=== PATIENT | female | born 1955 | race Caucasian/White ===

== ENCOUNTER 2025-08-20 15:08 | Emergency (ER) | payer MEDICARE, BC, SELFPAY ==
--- OUTSIDE RECORDS SUMMARY | 2025-07-29 07:45 | XMS_ITS | Encounter Summary ---
Author Organization [facility] Address [address] [place] [address] Care Team Providers Care Water Tanker Driver Name Role Phone Kenny Arana MD Primary Care Provider [phone] Reason for Visit * (Routine) - Closed Specialty Diagnoses / Procedures Referred By Contac t Referred To Contact Diagnoses Low back pain with sciatica, sciatica laterality unspecified, unspecified back pain laterality, unspecified chronicity Procedures MRI SPINE LUMBAR W/O CON MRI SPINE LUMBAR W/O&W CON Namrata Sanders, DISTILLERY SUPERVISOR [address] [place] [address] Phone: tel: fax: Referral ID Status Reason Start Date Expiration Date Visits Re quested Visits Authorized [id number] Closed 1 1 Encounter Details Date Type Department Care Team (Latest Contact Info) Description 07/29/2025 7:45 AM CLEANER WALL Ancillary Procedure [facility] [address] [place] [address] Low back pain with sciatica, sciatica laterality unspecified, unspecified back pain laterality, unspecified chronicity Social History Tobacco Use Types Packs/Day Years Used Date Smoking Tobacco: Never Assessed Comments Unknown Sex and Gender Information Value Date Recorded Sex Assigned at Not on file Legal Sex Female 2:52 PM CLEANER WALL Gender Identity Not on file Sexual Orientation Not on file documented as of this encounter Plan of Treatment Not on file documented as of this encounter Procedures Procedure Name Priority Date/Time Associated Diagnosis Comments MRI SPINE LUMBAR W/O CON Routine 07/29/2025 8:04 AM CLEANER WALL Low back pain with sciatica, sciatica laterality unspecified, unspecified back pain laterality, unspecified chronicity documented in this encounter Results * MRI SPINE LUMBAR W/O CON (07/29/2025 8:04 AM CLEANER WALL) Anatomical Region Laterality Modality Spine Magnetic Resonan ce 07/29/2025 10:5 9 AM CLEANER WALL Impressions 07/29/2025 11:06 AM CLEANER WALL Degenerative changes discussed above. Worsened facet arthropathy with increased anterolisthesis is progressive disc degeneration with loss of disc height at L4-L5 and L5-S1. At L4-L5, worsened moderate to severe spinal canal narrowing as well as severe right and mild to moderate left foraminal narrowing. At L5-S1, worsened mild to moderate spinal canal narrowing and mild to moderate bilateral foraminal narrowing. SIGNED BY: Gonzalo Byrnes M.D. Narrative 07/29/2025 11:06 AM CLEANER WALL EXAM: MRI LUMBAR SPINE 07/29/2025 7:47 AM. CLINICAL INFORMATION: Low back pain with sciatica TECHNIQUE: Routine-Sagittal T1, sagittal T2, sagittal STIR, axial T1, axial T2. COMPARISON: Previous outside MRI dated January 30, 2016 CONTRAST: None. FINDINGS: LUMBAR VERTEBRAE: Normal in height and signal intensity. LUMBAR ALIGNMENT: 7 mm anterolisthesis L4-L5 and 6 mm anterolisthesis L5-S1 are both increased.. CONUS MEDULLARIS AND CAUDA EQUINA: Normal in appearance. Conus ends at L1-L2 EXTRASPINAL ABNORMALITIES: No abnormalities demonstrated. SPECIFIC INTERSPACES ARE EVALUATED FOLLOWS: L1-2:: The disc is unremarkable. Central spinal canal and neural foramen are widely patent. L2-3: The disc is unremarkable. Central spinal canal and neural foramen are widely patent. L3-4: Mild disc bulge. No spinal canal or foraminal narrowing. No change. Central spinal canal and neural foramen are widely patent. L4-5: Moderate bilateral facet and ligamentous hypertrophy increased with increased anterolisthesis disc uncovering. Superimposed disc bulging. Moderate to severe spinal canal narrowing is worsened. Severe right foraminal narrowing is worsened. Mild to moderate left foraminal narrowing worsened.. L5-S1: Moderate bilateral facet arthropathy worsened. Increased anterolisthesis with disc uncovering superimposed disc bulging. Mild to moderate spinal canal narrowing worsened. Mild to moderate bilateral foraminal narrowing worsened.. Procedure Note Gonzalo Byrnes MD - 07/29/2025 EXAM: MRI LUMBAR SPINE 07/29/2025 7:47 AM. CLINICAL INFORMATION: Low back pain with sciatica TECHNIQUE: Routine-Sagittal T1, sagittal T2, sagittal STIR, axial T1,axial T2. COMPARISON: Previous outside MRI dated January 30, 2016 CONTRAST: None. FINDINGS: LUMBAR VERTEBRAE: Normal in height and signal intensity. LUMBAR ALIGNMENT: 7 mm anterolisthesis L4-L5 and 6 mm anterolisthesisL5-S1 are both increased.. CONUS MEDULLARIS AND CAUDA EQUINA: Normal in appearance. Conus ends atL1-L2 EXTRASPINAL ABNORMALITIES: No abnormalities demonstrated. SPECIFIC INTERSPACES ARE EVALUATED FOLLOWS: L1-2:: The disc is unremarkable. Central spinal canal and neural foramenare widely patent. L2-3: The disc is unremarkable. Central spinal canal and neural foramenare widely patent. L3-4: Mild disc bulge. No spinal canal or foraminal narrowing. No change.Central spinal canal and neural foramen are widely patent. L4-5: Moderate bilateral facet and ligamentous hypertrophy increased withincreased anterolisthesis disc uncovering. Superimposed disc bulging.Moderate to severe spinal canal narrowing is worsened. Severe rightforaminal narrowing is worsened. Mild to moderate left foraminal narrowingworsened.. L5-S1: Moderate bilateral facet arthropathy worsened. Increasedanterolisthesis with disc uncovering superimposed disc bulging. Mild tomoderate spinal canal narrowing worsened. Mild to moderate bilateralforaminal narrowing worsened.. IMPRESSION Degenerative changes discussed above. Worsened facet arthropathy with increased anterolisthesis is progressivedisc degeneration with loss of disc height at L4-L5 and L5-S1. At L4-L5, worsened moderate to severe spinal canal narrowing as well assevere right and mild to moderate left foraminal narrowing. At L5-S1, worsened mild to moderate spinal canal narrowing and mild tomoderate bilateral foraminal narrowing. SIGNED BY: Gonzalo Byrnes M.D. us No Doctor MRI ORDERABLE Final Result documented in this encounter Visit Diagnoses Diagnosis Low back pain with sciatica, sciatica laterality unspecified, unspecified back pain laterality, unspecified chronicity documented in this encounter Care Teams Water Tanker Driver Relationship Specialty Start Date End Date Kenny Arana MD [address] [place] [phone] PCP - General Internal Medicine 08/02/24 documented as of this encounter
[2025-08-20] VITALS (16 sets, daily range): BP systolic 148–175; BP diastolic 100–124; PULSE 94–113; RESP 18; TEMP 36.9; O2SAT 91–96; BMI 16.8
--- OUTSIDE RECORDS SUMMARY | 2025-08-20 15:09 | XMS_ITS | Clinical Summary ---
Author Organization [facility] Address [address] [place] [address] Care Team Providers Care Track And Field Coach Name Role Phone Kenny Arana MD Primary Care Provider [phone] Namrata Sanders BARREL RAISER HELPER Unavailable [phone] Allergies Active Allergy Reactions Criticality Noted Date Comments Polyethylene Glycol 3350 Vomiting 11/28/2018 Penicillins Rash Low 07/24/2007 Sulfa (Sulfonamide Antibiotics) Rash Low 04/25 Medications EXCEDRIN MIGRAINE 250 MG-250 MG-65 MG TAB 2 tabs twice daily 0 05/09/20 06 Active multivitamin (MVI) tablet Take 1 tablet by mouth once daily. 0 03/08/20 19 Active amLODIPine-estrella azepril, 5-10 mg, (LOTREL) 5-10 mg capsuleIndicat ions:HTN (hypertension) Take 1 Capsule by mouth once daily. 90 Capsule 3 12/04/19 25 Active fluticasone (50 mcg per actuation) nasal solution (FLONASE)Indic ations:Acute allergic rhinitis Inhale 2 Sprays in both nostrils once daily. 16 g 07/23/20 25 Active traMADoL (ULTRAM) 50 mg tabletIndicati ons:Fibromyalg ia TAKE 2 TABLETS BY MOUTH FOUR TIMES DAILY NEEDED 240 Tablet 08/01/20 25 Active fluticasone (50 mcg per actuation) nasal solution (FLONASE)Indic ations:Bacteri al sinusitis Inhale 2 Sprays in both nostrils once daily. 16 g 5 11:19 AM CDT 03/14/20 25 025 Discontinued(Re order (E-cancel not sent)) traMADoL (ULTRAM) 50 mg tabletIndicati ons:Fibromyalg ia TAKE 2 TABLETS BY MOUTH FOUR TIMES DAILY NEEDED 240 Tablet 07/03/20 25 025 Discontinued Active Problems Problem Noted Date Diagnosed Date HTN (hypertension) 12/03/2024 Depression, recurrent 03/29/2023 Dermatitis 12/16/2021 Generalized anxiety disorder 03/27/2021 Grief reaction her d ied of pancreatic cancer February 09, 2020 02/11/2020 Screening for colon cancer:: 2018 ifob + february 2019 colonoscopy hyperplastic polyp only. repeat 10 years. 08/29/2018 Fibromyalgia on tramadol se en at multiple pain clinics including [facility] (started tramadol there), failed MS contin, gabapentin, many antidepressants. PT is critical for her.ON tramadol and excedrin 07/19/2017 Overview (02/03/2021): 02/03/2021 10:12 AM I called and reviewed the issue of the tramadol prescription with her. She has a large retriever named Latesha weighs about 60 pounds who takes tramadol 50 mg 4 times a day also.on an rx from her vet, this shows up on the HOSPITAL TECHNICIAN under her name. There is no conflict between her having this for her dog and having a separate prescription for herself. I refilled her prescription. Signed electronically Kenny Arana MD [facility] Encounter for long-term (cur rent) use of other medications toxassure 02/201902/06/2015 Resolved Problems Problem Noted Date Diagnosed Date Resolved Date Systemic lupus erythematosus , unspecified SLE type, unspecified organ involvement status 04/06/2022 09/01/2022 Weight loss, unintentional 04/06/2022 0 01/15/2024 Overview (04/06/2022): Wt Readings from Last 10 Encounters: 04/06/22 42.4 kg (93 lb 6 oz) 12/16/21 44.5 kg (98 lb 3.2 oz) 03/25/21 44.2 kg (97 lb 8 oz) 03/22/21 44.5 kg (98 lb) 12/10/20 45 kg (99 lb 4.8 oz) 11/13/19 47.4 kg (104 lb 8 oz) 08/28/19 46.1 kg (101 lb 11.2 oz) 05/23/19 46.9 kg (103 lb 6.4 oz) 03/08/19 48.3 kg (106 lb 8 oz) 11/28/18 49.6 kg (109 lb 6.4 oz) Bilateral foot pain 07/06/2021 01/15/20 24 Prediabetes 03/29/2021 07/06/2021 Hypertriglyceridemia 03/29/2021 021 Attention deficit hyperactiv ity disorder (ADHD), combined type 03/27/2021 07/06/2021 PTSD (post-traumatic stress disorder) 03/27/2021 07/06/2021 Adjustment reaction with anx iety and depression 03/27/2021 08/03/2023 Screening for breast cancer 08/29/2018 07/06/2021 Pap smear for cervical cancer screening 08/29/2018 07/06/2021 Back pain without radiation 08/29/2018 07/06/2021 Lumbar disc disease 02/23/2016 08/29/20 18 Abdominal bloating 02/06/2015 8 Abdominal pain 08/28/2014 08/29/2018 Epistaxis 08/28/2014 08/29/2018 Insomnia 05/07/2013 08/29/2018 Osteoarthritis of hands 12/17/201201/2018 Dyshidrotic eczema of hands 12/17/2012 08/29/2018 Raynaud phenomenon 12/17/2012 8 ADD (attention deficit disorder) 12/17/2012 08/29/2018 Anxiety 12/17/2012 08/29/2018 Arthritis 12/17/2012 08/29/2018 FIBROMYALGIA 05/09/2006 07/19/2017 Encounters Date Type Department Care Team Description 08/08/2025 Telephone [facility] [address] [place] [phone] Namrata Sanders, LUIS Questions 08/01/2025 Refill [facility] [address] [place] [address] Namrata Sanders, LUIS Refill Request (Tramadol) 07/31/[address] [address] Namrata Sanders, LUIS Results (MR SPINE LUMBAR WWO) 07/23/2025 12:30 PM CDT Phone Office Visit [address] [address] Namrata Sanders, LUIS 07/23/[address] [address] Namrata Sanders, LUIS Imaging 07/23/[address] [address] Namrata Sanders, LUIS Refill Request (Fluticasone (50 Mcg Per Actuation) Nasal) 07/21/[address] [address] Namrata Sanders NP Appointment (med check ) 07/17/[address] [address] Kenny Arana MD Appointment Request 07/03/[address] [address] Kenny Arana MD Refill Request (Tramadol) 06/09/[address] [address] Kenny Arana MD Refill Request (Tramadol) 05/28/2025 Nurse Triage [address] [address] Kenny Arana MD Mouth Problem 05/23/2025 Telephone [facility] [address] [facility] [place] [address] Tech, Mammo Results (screening mammogram.) 05/22/2025 2:30 PM CDT Ancillary Procedure [facility] [address] [phone] 05/22/2025 Travel from Last 3 Months Family History Medical History Relation Name Comments Other Brother 1 killed by drunk newspaper delivery driver Skin cancer Brother 6 Mental illness Brother 9 Other Brother 9 suicde Cancer Father stomach Other Father abdominal aneur ysm Cancer Maternal Grandmother uterine Arthritis Mother Cancer Mother ovarian or panc reas at 43. pt stated doctors did not know where cancer started as it was spread all over. Arthritis Sister Relation Name Status Comments Brother 1 Brother 2 Alive Brother 3 Alive Brother 4 Alive Brother 5 Alive Brother 6 Alive Brother 7 Alive Brother 8 Alive Brother 9 Father Maternal Grandmother Mother Sister Alive Social History Tobacco Use Types Packs/Day Years Used Date Smoking Tobacco: Former Cigarettes 0.3 10 1 09/25/1994 - 07/26/2005 Smokeless Tobacco: Never Tobacco Cessation:Counseling Given: Not Answered Alcohol Use Standard Drinks/Week Comments No 0 (1 standard drink = 0.6 oz pur e alcohol) PHQ-2 Answer Date Recorded PHQ-2 TOTAL SCORE 2 01/15/2024 Social Connections Answer Date Recorded Do you often feel lonely or isolated from those around you? 0 12/03/2024 Financial Resource Strain Answer Date R ecorded Difficulty of Paying Living Expenses 3 12/03/2024 Difficulty of Paying Living Expenses Not on file 12/03/2024 Food Insecurity Answer Date Recorded Do you worry your food will run out before you are able to buy more? 1 12/03/2024 Transportation Needs Answer Date Record ed Does lack of transportation keep you from medica l appointments? 1 12/03/2024 Does lack of transportation keep you from work, meetings or getting things that you need? 1 12/03/2024 Housing Stability Answer Date Recorded What is your housing situation today? 1 12/03/2024 Utilities Answer Date Recorded Do you have trouble paying f or utilities (for example, heat, electricity, water, phone)? 1 12/03/2024 Comments No Sex and Gender Information Value Date Recorded Sex Assigned at Not on file Legal Sex Female 6:41 AM MOBILE HOMES REPAIRER Gender Identity Not on file Sexual Orientation Not on file Obstetrics History Para Term AB IAB SAB Ectopic Multiple Livin g Live Births 6 1 1 0 5 0 4 1 0 1 1 Date Outcome GA Total Labor Labor/2nd/3rd Weight Sex Type Anes PTL Bree A1 A5 Name Clin Ectopic SAB SAB SAB SAB 1979 Term M C-Sec tion Living Last Filed Vital Signs Vital Sign Reading Time Taken Comments Blood Pressure 166/100 03/14/2025 10:27 AM CDT Pulse 100 03/14/2025 10:27 AM CDT Temperature 36.5 C (97.7 F) 03/14/2025 10:27 AM CDT Respiratory Rate 14 03/14/2025 10:27 AM CDT Oxygen Saturation 96% 03/14/2025 10:27 AM CDT Inhaled Oxygen Concentration - - Weight 42.5 kg (93 lb 9.6 oz) 12/03/2024 10:39 A M CDT Height 160 cm (5' 3) 12/03/2024 10:39 AM CDT Body Mass Index 16.58 12/03/2024 10:39 AM CDT Plan of Treatment Health Maintenance Due Date Last Done Comments Pneumococcal series for age 50+ (1 of 1 - PCV) 12/08/2005 RSV vaccine for adults or (1 - Risk 50-74 years 1-dose series) 12/08/2005 Zoster (shingles) series for age 50+ (1 of 2) 12/08/2005 Tetanus booster 07/24/2019 07/24/2009 (Comp leted outside of [facility]) DEXA/DXA scan for age 65+ 12/08/2020 Depression screening for age 12+ 01/14/2025 01/15/2024, 08/26/2022, 08/24/2022, Additional history exists Medicare Wellness for age 65+ 01/15/2025 01/15/2024, 04/06/2022, 03/25/2021 Influenza Vaccine (#1) 2025 BMI (ht and wt on same day) for age 18+ 12/03/2025 12/03/2024, 01/15/2024, 08/22/2022, Additional history exists Mammogram for age 45-75 05/22/2026 05/22/20 25, 01/15/2024, 11/28/2018, Additional history exists Lipids for age 45-75 01/14/2029 01/15/2024, 03/29/2023, 04/06/2022, Additional history exists Colonoscopy through age 75 03/19/2029 03/19/2019 Hepatitis C screening for age 18-79 Completed 06/26/2013 Hepatitis B series for 19+ Aged Out N o longer eligible based on patient's age to complete this topic Procedures Procedure Name Priority Date/Time Associated Diagnosis Comments XR MAMMO JADA BILAT SCREEN Routine 05/22/2025 2:58 PM CDT Visit for screening mammogram LIPID PANEL W REFLEX MEASURED LDL Routine 01/15/2024 10:38 AM CDT High cholesterol SCAN-COLONOSCOPY 03/19/2019 8:00 AM CDT ANTI HCV Routine 06/26/2013 11:55 AM CDT Routine screening for STI (sexually transmitted infection) from Last 3 Months or Most Recently Relevant to Health Maintenance Results * XR MAMMO JADA BILAT SCREEN (05/22/2025 2:58 PM CDT) Anatomical Region Laterality Modality BREASTS, Breast Left, Breast Right Bilateral Mammography Impressions 05/23/2025 1:39 PM CDT There is no radiographic evidence for malignancy. Recommend annual mammograms. MAMMOGRAM ASSESSMENT: ACR 1 Negative PATIENTS: You will also receive a letter with your examination results in an easy to read format. If you have questions about your results, please contact your referring provider. Narrative 05/23/2025 1:39 PM CDT For Patients: As a result of the Century Cures Act, medical imaging exams and procedure reports are released immediately into your electronic medical record. You may view this report before your referring provider. If you have questions, please contact your health care provider. XR MAMMO JADA BILAT SCREEN [[id number]] CLINICAL HISTORY: This is an asymptomatic 69 y.o. patient. INDICATION FOR EXAM: Mammogram Screening. TECHNIQUE: CC and MLO views were obtained. This study was evaluated with the assistance of Computer-Aided Detection. Breast Tomosynthesis was used in interpretation. COMPARISON FILM: Yes 11/28/18 [facility] 10/19/05 [facility] FINDINGS: The breasts are heterogeneously dense, which may obscure small masses. There are no dominant masses, suspicious micro calcifications or areas of architectural distortion. us Kenny Arana MD MAMMO Final Result * (ABNORMAL) LIPID PANEL W REFLEX MEASURED LDL (01/15/2024 10:38 AM CDT) CHOLESTEROL,TOTAL 231(H) 100 - 199 mg/dL 01/15/2024 8:42 PM CDT [facility] Comment: Cholesterol, Total Reference Ranges Desirable <200 mg/dL Borderline 200-239 mg/dL High >=240 mg/dL TRIGLYCERIDES 99 <150 mg/dL 01/15/2024 8:42 PM CDT [facility] HDL CHOLESTEROL 87 >40 mg/dL 8:42 PM CDT [facility] NON-HDL CHOLESTEROL 144 <145 mg/dl 01/15/2024 8:42 PM CDT [facility] CHOL/HDL RATIO 2.66 <4.50 01/15/2024 8:42 PM CDT [facility] LDL CHOLESTEROL 124 <=130 mg/dL 01/15/2024 8:42 PM CDT [facility] VLDL CHOLESTEROL 20 <=30 mg/dL 01/15/2024 8:42 PM CDT [facility] PROVIDER ORDERED STATUS RANDOM 01/15/2024 8:42 PM CDT [facility] Blood BLOOD SPECIMEN / Unknown Venipuncture / Unknown 01/15/2024 10:38 AM CDT 01/15/2024 10:38 AM CDT us Kenny Arana MD CHEMISTRY Final Result [facility] [address] [place] [address], [place] * SCAN-COLONOSCOPY (03/19/2019 8:00 AM CDT) Narrative Procedure Note Nirmal Zacarias MD - 03/19/2019 7:12 AM CDT [facility] [address], [address], [place] [address] Patient Name: Ioana Barahona Gender: Female Exam Date: 03/19/2019 Visit Number: [id number] Age: 63 Years Date of : 1955 Attending MD: Nirmal Zacarias MD Medical Record#: [id number] Procedure: Colonoscopy Indications: Colorectal cancer screening Hemoccult positive stools Referring MD: Kenny Arana MD Primary MD: Kenny Arana MD Medications: Admitting Medications: 0.9% Normal Saline at TK Intra Procedure Medications: Patient received monitored anesthesia care. Complications: No immediate complications Procedure: An examination of the heart and lungs was performed and found to be withinacceptable limits. The patient was therefore deemed a reasonablecandidate for endoscopy and sedation. The risks and benefits of the procedure were explained to the patient.After obtaining informed consent, the patient received monitoredanesthesia care and I passed the scope without difficulty via the rectum to the cecum. The appendiceal orificeand ic valve were identified. The scope was retroflexed during theexamination The quality of the prep was good (Suprep). This was a complete examination throughout the entire colon. Findings: Polyp location: sigmoid. Quantity: 2. Size: 1 mm, 1 mm. Polyp shape:sessile. Maneuver: polypectomy was performed with a cold biopsy forceps. Removal: complete. Retrieval: complete. Bleeding: none. Polyp location: rectum. Quantity: 1. Size: 1 mm. Polyp shape: sessile. Maneuver: polypectomy was performed with a cold biopsy forceps . Removal: complete. Retrieval: complete. Bleeding: none. Diverticulosis. Location: - sigmoid. Size: small. Quantity:few. No inflammation present. Hemorrhoids. Internal hemorrhoids (small) without bleeding. Tortuous colon. As a result, extra time was needed to complete theprocedure. Remainder of the exam is normal. Impression: Colorectal polyps Diverticulosis of colon without diverticulitis Internal hemorrhoids impression comments: Three polyps were removed. Preliminary Plan: Repeat colonoscopy 3, 5, or 10 years depending on the pathology resul. Pathology Results: A: COLON, SIGMOID, POLYPS: 1. Hyperplastic polyps (2) B: RECTUM, POLYP: 1. Hyperplastic polyp MICROSCOPIC A: Performed B: Performed Electronically signed by: Felix Prabhakar MD Orders Instruction(s)/Education: Instruction/Education Timeframe Assessment Colon Polyps K63.5 Diverticulosis/Diverticulitis K63.5 Hemorrhoids K63.5 Final Plan: Repeat colonoscopy in 10 years for screening. If you have signs orsymptoms of lower GI illness or a new diagnosis of colon cancer in animmediate family member, you should contact [facility] or your primary providerto discuss whether your next exam should be repeated sooner. We will attempt to contact you at appropriate intervals via U.S. mail. Wemay not be able to find you or contact you at that time, therefore youshould know that the responsibility for following our recommendation restswith you. If you don't hear from us at the time your procedure is due,please contact our office to schedule an appointment. If your contactinformation should change, please contact our office so that we can updateyour record. _Electronically signed by: Nirmal Zacarias MD 03/19/2019 cc: Kenny Arana MD cc: Kenny Arana MD us Nirmal Zacarias MD OTHER Final Resu lt * ANTI HCV (06/26/2013 11:55 AM CDT) ANTI HCV Non-reacti ve [facility] Blood specimen (specimen) BLOOD SPECIMEN / Unknown 06/26/2013 11:55 AM CDT 06/26/2013 11:51 AM CDT us Bhavya Archibald NP SEND OUTS Final Re sult [facility] [place]NAL ZIP [id number] [place] [address] from Last 3 Months or Most Recently Relevant to Health Maintenance Insurance MEDICARE PART B HB ONLY [facility] MEDICARE PB ONLY Care Teams Track And Field Coach Relationship Specialty Start Date End Date Kenny Arana MD [address] [place] [id number] PCP - General Internal Medicine 02/23/18 Namrata Sanders NP [address] [address] Nurse Practitioner Nurse Practitioner 12/17/24
--- OUTSIDE RECORDS SUMMARY | 2025-08-20 15:09 | XMS_ITS | Clinical Summary ---
Author Organization [facility] Address [address] [place] [id number] Care Team Providers Care Temp Recruiter Name Role Phone Kenny Arana MD Primary Care Provider [phone] Allergies No known active allergies Encounters Date Type Department Care Team Description 07/29/2025 7:45 AM LODE MINER Ancillary Procedure [facility] [address] [place] [address] Low back pain with sciatica, sciatica laterality unspecified, unspecified back pain laterality, unspecified chronicity from Last 3 Months Social History Tobacco Use Types Packs/Day Years Used Date Smoking Tobacco: Never Assessed Comments Unknown Sex and Gender Information Value Date Recorded Sex Assigned at Not on file Legal Sex Female 2:52 PM LODE MINER Gender Identity Not on file Sexual Orientation Not on file Plan of Treatment Health Maintenance Due Date Last Done Comments Colonoscopy 1955 Lipid Screening 1955 Osteoporosis Screening 1955 Depression Assessment (PHQ-2) 12/08/1956 Adult Tetanus Booster 12/08/1974 Pneumococcal 50+ Years (1 of 1 - PCV) 12/08/2005 Yearly Review of HCD 12/08/2005 Zoster Vaccine (1 of 2) 12/08/2005 Medicare Wellness Visit 01/14/2025 01/15/20 24, 04/06/2022, 03/25/2021 COVID-19 Vaccine (1 - 2024-2 6 season) 2025 Influenza Vaccine (#1) 2025 Mammogram Screening 05/22/2027 05/22/2025, 05/22/2025, 11/28/2018 RSV Vaccines (1 - 1-dose 75+ series) 12/08/2030 Hepatitis C Screening Completed 06/26/2013 Meningococcal B Vaccine Aged Out No l onger eligible based on patient's age to complete this topic Procedures Procedure Name Priority Date/Time Associated Diagnosis Comments MRI SPINE LUMBAR W/O CON Routine 07/29/2025 8:04 AM LODE MINER Low back pain with sciatica, sciatica laterality unspecified, unspecified back pain laterality, unspecified chronicity from Last 3 Months Results * MRI SPINE LUMBAR W/O CON (07/29/2025 8:04 AM LODE MINER) Anatomical Region Laterality Modality Spine Magnetic Resonan ce 07/29/2025 10:5 9 AM LODE MINER Impressions 07/29/2025 11:06 AM LODE MINER Degenerative changes discussed above. Worsened facet arthropathy [...] Gonzalo Byrnes M.D. Narrative 07/29/2025 11:06 AM LODE MINER EXAM: MRI LUMBAR SPINE 07/29/2025 7:47 AM. [...] us No Doctor MRI ORDERABLE Final Result from Last 3 Months Insurance [facility] MEDICARE SUPPLEMENT MEDICARE PART A & B Care Teams Temp Recruiter Relationship Specialty Start Date End Date Kenny Arana MD [address] [address] PCP - General Internal Medicine 08/02/24
--- NOTE | 2025-08-20 15:39 | ED.GENADULT ---
HPI - General Adult General Time Seen by Provider: 15:54 Date Seen: 08/20/25 Chief complaint: Hypertension Stated complaint: anxiety Time Seen by Provider: 08/20/25 15:12 Source: patient, EMS and RN notes reviewed Mode of arrival: EMS Limitations: no limitations History of Present Illness HPI narrative: This 69-year-old female is brought in by EMS from home with concerns of her breathing. She notes she will start to feel anxious in her breathing will become rapid, feel like she can not catch her breath. She does note she has anxiety. She also does tell me there are times where she is walking her dog and feel pull her real hard, she will have difficulty getting caught up on her breathing. She has noticed no chest pain. She admits there was a lot of anxiety right now, she states she absolutely does not like change. She lots of times will eat the same foods over because she does not like change so much. She needs to move into a [facility] place, she worries how her dog and her are going to manage that change. Worries about that level of change. She admits that she went off the amlodipine that she was on, made her feel dizzy. She has not taken her tramadol for last couple days, was wondering if that was increasing her symptoms. She states she has tried a multitude of antidepressants in the past. She states none of them worked for her. She feels the tramadol besides helping her pain has actually helped some of her depression and anxiety symptoms in the past. She is having a lot of low back pain, had an MRI in does have lumbar stenosis. She has an appointment on August 28 for follow-up for this. She does admit that she is probably feeling some depression 2. She notes that she does not want to go out of the house, does not want to be around people or be in crowds, she certainly sounds to have some social anxiety on talking to her. Her brother is in the room now but she did tell nursing staff during triage that her brother has cancer and this is very upsetting to her as well. Her . She is not on anything for her lupus. She denies any chest pain, has not been sick with anything recently. She has a remote smoking history. Does not drink any alcohol. Past medical history from [facility] shows hypertension, dermatitis, grief reaction with of her from pancreatic cancer in January of 2020, generalized anxiety disorder, depression, fibromyalgia. Related Data Home Medications ?Medication ?Instructions ?Recorded ?Confirmed acetaminophen-caffeine 500 mg-65 1 tab PO Q6H 08/20/25 08/20/25 mg tablet (Excedrin Tension Headache) tramadol 50 mg tablet 100 mg PO QID PRN 08/20/25 08/20/25 Previous Rx's ?Medication ?Instructions ?Recorded hydroxyzine pamoate 25 mg capsule 25 mg PO TID PRN #30 caps 08/20/25 Allergies Allergy/AdvReac Type Severity Reaction Status Date / Time No Known Drug Allergies Allergy Verified 08/20/25 15:52 Review of Systems Status of ROS: Reports: 6 or more systems reviewed and unremarkable except as noted in History and below Exam Const: Vital Signs, click to edit/add: Vital Signs - 24 hr 08/20/25 15:26 08/20/25 15:30 08/20/25 15:32 Temperature Pulse Rate 105 H 104 H 101 H Pulse Rate [Pulse Oximeter] Respiratory Rate 18 Blood Pressure 168/113 H Blood Pressure [Ri ght Upper Arm] Pulse Oximetry 95 95 96 Oxygen Delivery Me thod 08/20/25 15:33 08/20/25 16:02 08/20/25 17:08 Temperature 98.4 F Pulse Rate 111 H Pulse Rate [Pulse Oximeter] 101 H Respiratory Rate 18 Blood Pressure 175/123 H Blood Pressure [Ri ght Upper Arm] 171/124 H Pulse Oximetry 96 94 Oxygen Delivery Me thod Room Air 08/20/25 17:09 08/20/25 17:10 08/20/25 17:11 Temperature Pulse Rate 108 H 110 H 108 H Pulse Rate [Pulse Oximeter] Respiratory Rate Blood Pressure 174/107 H Blood Pressure [Ri ght Upper Arm] Pulse Oximetry 95 96 96 Oxygen Delivery Me thod 08/20/25 17:15 08/20/25 17:30 08/20/25 17:32 Temperature Pulse Rate 105 H 113 H 106 H Pulse Rate [Pulse Oximeter] Respiratory Rate Blood Pressure 148/104 H Blood Pressure [Ri ght Upper Arm] Pulse Oximetry 96 91 96 Oxygen Delivery Me thod 08/20/25 17:45 08/20/25 18:00 08/20/25 18:02 Temperature Pulse Rate 99 99 102 H Pulse Rate [Pulse Oximeter] Respiratory Rate Blood Pressure 156/100 H Blood Pressure [Ri [facility] Upper Arm] Pulse Oximetry 95 95 95 Oxygen Delivery Me thod 08/20/25 18:16 Temperature Pulse Rate 94 Pulse Rate [Pulse Oximeter] Respiratory Rate Blood Pressure Blood Pressure [Ri t Upper Arm] Pulse Oximetry 96 Oxygen Delivery Me thod Nasim is a 69-year-old female lying in bed in exam room 6, she is frail looking, slender status, alert, interactive, no apparent distress. Speech is normal, not pressured. She has normal thought content. Denies suicidality or homicidality, denies hallucinations. Sclera clear, conjugate gaze, symmetrical facial function. Next slender, no jugular venous distension, no masses. Lungs are clear come good air entry, no wheezing crackles, no tachypnea, no accessory muscle use. CV regular rate and rhythm, no murmur, normal S1-S2, S3-S4. Abdomen is soft, not distended, slender, no masses, no organomegaly. She has no lower extremity edema. She moves all extremities, no focal neurologic deficit noted. Documenting provider has reviewed patient's vital signs: yes Course Course ED Course: Her blood pressure in November was 134/58 while she was on medicines presumably. In her chart it was 166/100 in February of this year. She is hypertensive here but is off medicines. She is denying any end organ damage at this time outside of this shortness of breath. Will look at D-dimer, have her on pulse oximetry making sure we do not have hypoxia. Will look at cardiac labs, EKG, do appropriate labs. We are going to give her 100 mg of tramadol, reviewed with her that increase in pain certainly does not help blood pressure and she has been on chronic tramadol. There could be some withdrawal with this as well. She does agree to take this. She believes she has maybe use Vistaril in the past but has been years. We are going to give her a dose of Vistaril 25 mg here, this may help with muscle relaxant properties, augment pain as well as decrease anxiety. This is a non addictive medicine. I do not feel confident initiating anything out of the ER for depression and anxiety out of routine medicines as it sounds that she has tried many before, this will likely need to be managed by her primary care provider. Reevaluation(s) Time of Reevaluation #1: 16:45 Reevaluation #1: Patient is requesting to eat, did agree to allow patient to eat, see no reason to have her NPO. Time of Reevaluation #2: 18:43 Reevaluation #2: Patient states she is feeling much calmer. She is requesting some Vistaril, doubt that she will be able to get the prescription tonight and [facility] will be closed tomorrow. Will send her with two 25 mg pills that she could take tomorrow if needed. Consultations Consultation #1: Did speak with Dr. Bertrand from [facility]. We did review the troponins. He wonders if the initial blood pressure being elevated may have escalated this some, we did review her blood pressure maintained elevated however here. Patient is not having any chest pain. He thinks patient is safe to discharge with return precautions. I called more to discuss using the highly sensitive troponin and to see if you can see drastic changes. He states the initial value was not that elevated anyways. He does not think we need to repeat another 1. Time: 18:27 Vital Signs Vital signs: Initial Vital Signs Pulse Rate 105 H 08/20/25 15:26 Pulse Oximetry 95 08/20/25 15:26 Vital Signs Pulse Rate 105 H 08/20/25 15:26 Pulse Oximetry 95 08/20/25 15:26 Temperature 98.4 F 08/20/25 15:33 Pulse Rate 94 08/20/25 18:16 Respiratory Rate 18 08/20/25 15:33 Blood Pressure 156/100 H 08/20/25 18:02 Pulse Oximetry 96 08/20/25 18:16 Oxygen Delivery Method Room Air 08/20/25 15:33 Medications Administered Medications: Discontinued Medications Generic Name Dose Route Start Last Admin Trade Name Freq PRN Reason Stop Dose Admin Hydroxyzine Pamoate 25 mg 08/20/25 16:10 08/20/25 16:35 Hydroxyzine Pamoate 25 Mg Capsule PO 08/20/25 16:11 25 mg ONCE ONE Administration Hydroxyzine Pamoate 50 mg 08/20/25 18:42 08/20/25 18:55 Hydroxyzine Pamoate 25 Mg Capsule PO 08/20/25 18:43 Not Given ONCE ONE Tramadol HCl 100 mg 08/20/25 16:10 08/20/25 16:34 Tramadol Hcl 50 Mg Tablet PO 08/20/25 16:11 100 mg ONCE ONE Administration Medical Decision Making Lab Data Labs: Lab Results 08/20/25 08/20/25 Range/Units 16:30 17:20 WBC 8.04 (4.50-11.00) K/uL RBC 5.11 (4.00-5.20) m/uL Hgb 15.7 (12.0-16.0) gm/dL Hct 46.3 (33.0-51.0) % MCV 91 (80-100) fL MCH 31 (26-34) pg MCHC 34 (32-36) gm/dL RDW Coeff of Sweetie 13.0 (11.5-15.5) % Plt Count 250 (140-440) K/uL Neut % (Auto) 81.1 H (42.0-72.0) % Lymph % (Auto) 11.7 L (20-44) % Towns % (Auto) 6.8 (0.0-11.0) % Eos % (Auto) 0.1 (0.0-7.0) % Baso % (Auto) 0.2 (0.0-3.0) % Neut # (Auto) 6.50 (1.7-7.0) K/uL Lymph # (Auto) 0.90 (0.90-2.90) K/uL Towns # (Auto) 0.50 (0.00-0.90) K/UL Eos # (Auto) 0.01 (0.00-0.50) K/uL Baso # (Auto) 0.02 (0.00-0.30) K/uL Abs Immat Gran (auto) 0.01 (0.00-0.30) K/uL Imm/Tot Granulo (auto) 0.1 % D-Dimer Quant (PE/DVT) 0.27 (0.00-0.50) ug/ml VBG pH 7.432 H (7.32-7.43) VBG pCO2 47 (40-50) mmHG VBG pO2 34.2 (25-47) mmHG VBG HCO3 31 H (21-28) mmol/L Sodium 134 L (135-149) mmol/L Potassium 3.4 L (3.6-5.1) mmol/L Chloride 93 L (96-114) mmol/L Carbon Dioxide 29 (20-32) mmol/L Anion Gap 12 (7-15) mEq/L BUN 18 (7-30) mg/dL Creatinine 0.7 (0.5-1.5) mg/dL Estimated Creat Clear 34.98 Estimated GFR 94 ml/min Glucose 104 (60-115) mg/dL Calcium 10.2 (8.4-10.6) mg/dL Magnesium 1.9 (1.5-2.6) mg/dL Total Bilirubin 0.7 (0.1-1.5) mg/dL AST 28 (12-35) U/L ALT 21 (4-35) U/L Alkaline Phosphatase 76 (40-150) U/L POC Troponin I High Sensi 17.7 H* 2.9 (2.9-13.0) pg/mL NT-Pro-B Natriuret Pep 196 (See Note) pg/mL Total Protein 7.3 (6.0-8.3) g/dL Albumin 4.7 (3.3-5.0) g/dL Imaging Data Chest x-ray: Attestation: I have reviewed the pertinent imaging results. My impression: Did visualize her portable chest x-ray and see hyperinflation without infiltrate, no pneumothorax. Radiologist's impression: Patient: NASIM BERTRAND Facility:?[facility] Patient ID:?[id number] Site Patient ID:?[id number]. Site :?[id number] Study:?XRay-Chest PORTABLE-08/20/2025 4:27:56 PM Ordering Physician:Brady Lyle Final Report: Indication: Shortness of breath Comparison: None available. Technique: Single AP view chest Findings: There is hyperinflation and chronic interstitial change. There is no focal consolidation, effusion, or pneumothorax. The cardiac silhouette is mildly prominent. The bony thorax is grossly intact. Impression: Marked hyperinflation and chronic interstitial changes without evidence of dense consolidation. Dictated by Óscar Cutler MD @ 08/20/2025 5:01:09 PM (Electronic Signature) ECG Data Attestation: I personally reviewed and interpreted this ECG as follows: (Normal sinus rhythm, biatrial enlargement, no acute ischemic change, flipped T-waves V1 through V4 without ST segment change.) Prior ECG tracings: not available for review Interpretation: Normal sinus rhythm, 96 beats per minute. Flipped T-waves V1 through V4 without any ST segment change, EKG unchanged from prior. Discharge Plan Discharge Clinical Impression: Anxiety, Fibromyalgia, Hypertension Patient Disposition: Home, Self-Care Condition: Stable Instructions: Fibromyalgia (ED), Generalized Anxiety Disorder (ED), Chronic Hypertension (ED) Additional Instructions: I do think that you should stay on your tramadol as you have been. If you do decide that you want to go off of this or decreased dosing, need to work with your primary care provider about a reduction plan. You also should follow up in clinic to review your blood pressure, discuss further management of hypertension. It is important to try to treat this, I feel you are best served following up with your primary care provider whom knows her history and potential medicines that you have tried in the past. There are other blood pressure medicines that he may tolerate better, will let you work on this with your primary care provider. You should also talk about anxiety. I will write for some Vistaril, this can be used as needed for anxiety symptoms. This is not addicting but can be sedating, would not recommend driving or operating machinery while using. As far as your shortness of breath, I do wonder about the symptoms you had while walking your dog, this could signify some lung problems from history of smoking or potential underlying heart disease. Would recommend talking to your primary care provider about doing cardiac stress testing as well as pulmonary function testing if they felt this was appropriate. If you have further concerns, have increasing shortness of breath, difficulty breathing or chest pain, please return to the ER for further evaluation. Activity Level: Activity as Tolerated Prescriptions: New hydroxyzine pamoate 25 mg capsule 25 mg PO TID PRNQty: 30 0RF No Action tramadol 50 mg tablet 100 mg PO QID PRN Excedrin Tension Headache 500-65 mg tablet 1 tab PO Q6H Follow Up/Referrals: Provider,Not a Local [Primary Care Provider, Family Practice] Stand Alone Forms: [facility] Info Instructions Procedures ABG Interpretation ABG Results: 08/20/25 16:30 VBG pH 7.432 H VBG pCO2 47 VBG pO2 34.2 VBG HCO3 31 H
--- NOTE | 2025-08-20 16:09 | CRLHL7_ITS ---
For Patients: As a result of the Century Cures Act, medical imaging exams and procedure reports are released immediately into your electronic medical record. You may view this report before your referring provider. If you have questions, please contact your health care provider. Indication: Shortness of breath Comparison: None available. Technique: Single AP view chest Findings: There is hyperinflation and chronic interstitial change. There is no focal consolidation, effusion, or pneumothorax. The cardiac silhouette is mildly prominent. The bony thorax is grossly intact. Impression: Marked hyperinflation and chronic interstitial changes without evidence of dense consolidation. Dictated by Óscar Cutler MD @ 08/20/2025 5:01:09 PM (Electronically Signed)
[2025-08-20] MEDS: TRAMADOL HCL 50 MG TABLET 100 MG PO (16:34)
[2025-08-20 16:36] LABS: HCO3 VBG 31 mmol/L (21-28); PCO2 VBG 47 mmHG (40-50); PO2 VBG 34.2 mmHG (25-47); pH VBG 7.432 (7.32-7.43)
[2025-08-20 16:52] LABS: Hematocrit* 46.3 % (33.0-51.0); Hemoglobin* 15.7 gm/dL (12.0-16.0); Immature Granulocytes Abs Auto 0.01 K/uL (0.00-0.30); Immature Granulocytes Pct Auto 0.1 %; Mean Corpuscular HGB Conc 34 gm/dL (32-36); Mean Corpuscular Hemoglobin 31 pg (26-34); Mean Corpuscular Volume 91 fL (80-100); RDW Coefficient of Variation % 13.0 % (11.5-15.5); Red Blood Count* 5.11 m/uL (4.00-5.20); White Blood Count* 8.04 K/uL (4.50-11.00)
[2025-08-20 16:53] LABS: Albumin* 4.7 g/dL (3.3-5.0); Chloride* 93 mmol/L (96-114); Lymphocytes Absolute Auto 0.90 K/uL (0.90-2.90); Potassium* 3.4 mmol/L (3.6-5.1); Slide Review Reflex No; Sodium* 134 mmol/L (135-149)
[2025-08-20 16:55] LABS: Alanine Aminotransferase* 21 U/L (4-35); Alkaline Phosphatase* 76 U/L (40-150); Anion Gap 12 mEq/L (7-15); Aspartate Amino Transferase* 28 U/L (12-35); Bilirubin Total* 0.7 mg/dL (0.1-1.5); Blood Urea Nitrogen* 18 mg/dL (7-30); Carbon Dioxide* 29 mmol/L (20-32); Creatinine* 0.7 mg/dL (0.5-1.5); Est. Creatinine Clearance* 34.98; Estimated Glomerular Filt Rate 94 ml/min
[2025-08-20 16:56] LABS: Total Protein* 7.3 g/dL (6.0-8.3)
[2025-08-20 16:58] LABS: D Dimer Quantitative* 0.27 ug/ml (0.00-0.50)
[2025-08-20 17:08] LABS: NT Pro B Type NatriureticPept* 196 pg/mL (See Note)
[2025-08-20 17:13] LABS: Calcium* 10.2 mg/dL (8.4-10.6); Glucose* 104 mg/dL (60-115)
--- NOTE | 2025-08-20 18:24 | ED.NURSE ---
[facility] connected with provider for consult.
== END 2025-08-20 19:17 | disposition home or self-care (01) ==
PROVIDERS: Emergency Provider Family Medicine
DX: F41.9 Anxiety disorder, unspecified (principal); M79.7 Fibromyalgia; I10 Essential (primary) hypertension; R06.02 Shortness of breath
CPT/HCPCS: 36415; 71045; 80053; 82803; 83735; 83880; 84484; 85025; 85379; 93005; 94761; 99284; 99285; A9270